=== PATIENT | female | born 1980 | race Caucasian/White ===

== ENCOUNTER 2018-04-11 10:29 | Emergency (ER) | payer OTHER ==
[2018-04-11 11:30] VITALS: BMI 27.6
[2018-04-11 12:27] LABS: BASO # 0.1 K/uL (0.0-0.2); BASO % 0.5 % (0.0-2.0); EOS % 0.3 % (0.0-4.0); HEMOGLOBIN 13.5 g/dL (12.0-16.0); LYMPH # 2.9 K/uL (1.0-4.3); LYMPH % 25.6 % (20.0-40.0); MEAN CELL VOLUME 93.3 fl (81.0-99.0); MEAN CORPUSCULAR HEMOGLOBIN 31.5 pg (27.0-31.0); MEAN CORPUSCULAR HGB CONC 33.8 g/dL (33.0-37.0); MEAN PLATELET VOLUME 12.5 fl (7.2-11.7); MONO # 0.6 K/uL (0.0-0.8); NEUT # 7.7 K/uL (1.8-7.0); NEUT % 68.6 % (50.0-75.0); NRBC % 0.2 % (0.0-0.0); RBC 4.27 Mil/uL (3.80-5.20); RED CELL DISTRIBUTION WIDTH 12.8 % (11.5-14.5); WHITE BLOOD COUNT 11.2 K/uL (4.8-10.8)
[2018-04-11 12:39] LABS: ALB/GLOB RATIO 1.1 (1.0-2.1); ALBUMIN 3.7 g/dL (3.5-5.0); ALT/SGPT 16 U/L (9-52); AST/SGOT 28 U/L (14-36); BLOOD UREA NITROGEN 10 mg/dl (7-17); CALCIUM 9.3 mg/dL (8.4-10.2); GFR AFRICAN-AMERICAN > 60; GFR NON-AFRICAN AMERICAN > 60; URIC ACID 5.4 mg/Dl (2.2-7.5)
[2018-04-11 12:44] LABS: SQUAMOUS EPITHIAL 24 /hpf (0-5); URINE BACTERIA RARE (<OCC); URINE BILIRUBIN NEGATIVE (NEGATIVE); URINE BLOOD NEGATIVE (NEGATIVE); URINE CLARITY CLOUDY (Clear); URINE COLOR YELLOW (YELLOW); URINE GLUCOSE (UA) NEG (Normal); URINE LEUKOCYTE ESTERASE MOD Leu/uL (Negative); URINE PROTEIN NEGATIVE (NEGATIVE); URINE UROBILINOGEN 0.2-1.0 mg/dL (0.2-1.0)
--- NOTE | 2018-04-11 14:21 | OBDCSUM ---
Datetime: 04/11/2018 14:09 Discharged to, Provider: Home Follow up at, Provider: Amanda Disch Instr Activity: Normal activity Disch Instr Diet: Regular Discharge Instructions, Provider: Routine instructions given Follow up in weeks, Provider: 2-3d BP check Disch Referrals: None Contraception discussed, Prov: Yes Discharge Comment, Provider: Pre-eclampsia warning Discharge Diagnosis Prov Other: Hx gestational HTN/Low PLT ... today NO evidence of pre-eclampsia...
--- NOTE | 2018-04-11 14:21 | OBHP ---
Datetime: 04/11/2018 11:20 IP Adm Impression: Term, intrauterine ; No Active Labor; Intact Membranes IP Chief Complaint Other: BP and lab work IP Admit Plan: Observation/Evaluation Admit Comment, IP Provider: 37yo IUP at 37w sent from office for BP check/lab work. She has no PEREIRA, no visual dist, no epigastric pain. no swelling of feet PNC: Dr CHASE - chart rev'd - IVF; AMA PMH: denies PSH: denies NKA POBGYNH: G1 Denies STD A: IUP at 37w Low PLT;Hx Elevated BP No Evid of pre-eclampsia PLAN: labs; NST and monitor BP; pre-eclampsia warning Abdomen - PN: Normal Back - PN: Normal Lungs - PN: Normal Heart - PN: Normal Neurologic - PN: Normal HEENT - PN: Normal General - PN: Normal Presentation-Admit: Vertex FHR - Baseline A Provider: 130 Pool Provider: Negative IP Hx Assessment: The History has been Reviewed and is Current IP Chief Complaint: Other NICHD Variability Prov Fetus A: Moderate 6-25bpm NICHD Accel Fetus A IP Provider: 15X15 FHR Category Provider Fetus A: Category I NICHD Decel Fetus A IP Provider: None
[2018-04-11 20:52] VITALS: BP 126/85; PULSE 84; RESP 18; TEMP 98.3; O2SAT 100
== END 2018-04-11 14:30 | disposition home or self-care (01) ==
LOC: H.EROB2 10:29 → H.EROB 11:00 → H.EROB2 14:30
DX: O26.93 Pregnancy related conditions, unspecified, third trimester (principal); I10 Essential (primary) hypertension; Z3A.37 37 weeks gestation of pregnancy

== ENCOUNTER 2018-04-17 11:23 | Inpatient (IN) | payer OTHER ==
[2018-04-17 12:48] LABS: BASO % 0.4 % (0.0-2.0); EOS % 0.2 % (0.0-4.0); HEMOGLOBIN 12.9 g/dL (12.0-16.0); LYMPH % 18.2 % (20.0-40.0); MEAN CELL VOLUME 94.2 fl (81.0-99.0); MEAN CORPUSCULAR HEMOGLOBIN 31.5 pg (27.0-31.0); MEAN CORPUSCULAR HGB CONC 33.4 g/dL (33.0-37.0); MEAN PLATELET VOLUME 11.8 fl (7.2-11.7); MONO # 0.5 K/uL (0.0-0.8); MONO % 4.3 % (0.0-10.0); NEUT # 8.6 K/uL (1.8-7.0); NEUT % 76.9 % (50.0-75.0); RBC 4.1 Mil/uL (3.80-5.20); WHITE BLOOD COUNT 11.2 K/uL (4.8-10.8)
[2018-04-17 12:51] LABS: SQUAMOUS EPITHIAL 1 /hpf (0-5); URINE BACTERIA RARE (<OCC); URINE BILIRUBIN NEGATIVE (NEGATIVE); URINE BLOOD LARGE (NEGATIVE); URINE CLARITY SLIGHTY-CLOUDY (Clear); URINE COLOR YELLOW (YELLOW); URINE GLUCOSE (UA) NEG (Normal); URINE LEUKOCYTE ESTERASE NEG Leu/uL (Negative); URINE PROTEIN NEGATIVE (NEGATIVE); URINE UROBILINOGEN 0.2-1.0 mg/dL (0.2-1.0)
[2018-04-17 13:04] LABS: BLOOD UREA NITROGEN 11 mg/dl (7-17); GFR AFRICAN-AMERICAN > 60; GFR NON-AFRICAN AMERICAN > 60
[2018-04-17 13:05] LABS: ALB/GLOB RATIO 1.1 (1.0-2.1); ALBUMIN 3.7 g/dL (3.5-5.0); ALT/SGPT 10 U/L (9-52); AST/SGOT 21 U/L (14-36); CALCIUM 9.2 mg/dL (8.4-10.2)
[2018-04-17] MEDS: Lactated Ringer's 1,000 ML IV SCH ×2 (15:50→19:00)
--- NOTE | 2018-04-17 20:13 | OBHP ---
Datetime: 04/17/2018 14:53 IP Adm Impression: Term, intrauterine IP Admit Plan: Admit to unit Admit Comment, IP Provider: 37 yo G1PO IUP at 39.5 wks based off of ultrasound with hx of gestationa l HTN is being admitted for induction of labor. She was seen here for monitoring of HTN 1 wk ago. Pat ient denies any vaginal bleeding, contractions or loss of fluid. +FM OBGYNhx: no miscarriages PMH: neg Famhx: neg Sochx: no Tobacco, EtOH or drugs Surghx: neg Allergies: neg Meds: vitamins ROS: neg for blurred vision, headache, cp or sob PE: well appearing female in no acute distress Cardio: s1s2 no murmurs Resp: clear to auscultation b/l Abd: BS+, nontender Ext: calves nontender A/P:37 yo G1PO IUP at 39.5 wks 1. Admit to unit; follow induction protocol; will continue to observe Patient seen and examined with Dr. Jose Juan Preciado PGY-1 Pelvic Type - PN: Adequate Extremities - PN: Normal Abdomen - PN: Normal Lungs - PN: Normal Heart - PN: Normal Neurologic - PN: Normal HEENT - PN: Normal General - PN: Normal Presentation-Admit: Vertex FHR - Baseline A Provider: 130 Membranes, Provider: Intact IP Hx Assessment: The History has been Reviewed and is Current EGA AdmitDate IP: 39.5 Vital Signs Provider: Reviewed; Within Normal Limits IP Indication for Induction: Gest. HTN/PreEclampsia/Eclampsia IP Chief Complaint: Scheduled induction of labor NICHD Variability Prov Fetus A: Moderate 6-25bpm NICHD Accel Fetus A IP Provider: 15X15 FHR Category Provider Fetus A: Category I NICHD Decel Fetus A IP Provider: None Dilatation, Provider: 3 Effacement, Provider: 70 Station, Provider: -2 Genitourinary Exam: Normal Dr Signature: zoltan
[2018-04-17] MEDS ORDERED: Nalbuphine HCL 10 mg/ml Ampule IVP PRN (22:11)
[2018-04-18] MEDS: Lactated Ringer's 1,000 ML IV SCH ×3 (03:04→13:05)
[2018-04-18 06:38] LABS: BASO # 0.1 K/uL (0.0-0.2); BASO % 0.5 % (0.0-2.0); EOS % 0.2 % (0.0-4.0); HEMOGLOBIN 13.5 g/dL (12.0-16.0); LYMPH # 2.7 K/uL (1.0-4.3); LYMPH % 20.8 % (20.0-40.0); MEAN CELL VOLUME 93.5 fl (81.0-99.0); MEAN CORPUSCULAR HEMOGLOBIN 31.7 pg (27.0-31.0); MEAN CORPUSCULAR HGB CONC 33.9 g/dL (33.0-37.0); MEAN PLATELET VOLUME 11.9 fl (7.2-11.7); MONO # 0.7 K/uL (0.0-0.8); MONO % 5.3 % (0.0-10.0); NEUT # 9.5 K/uL (1.8-7.0); NEUT % 73.2 % (50.0-75.0); NRBC % 0.1 % (0.0-0.0); RBC 4.24 Mil/uL (3.80-5.20); RED CELL DISTRIBUTION WIDTH 13.2 % (11.5-14.5)
[2018-04-18] MEDS ORDERED: Lactated Ringer's 1,000 ML IV SCH (06:45)
[2018-04-18] MEDS ORDERED: Fentanyl/Bupivacaine HCl 250 ML EPI ONE (07:43)
--- NOTE | 2018-04-18 08:33 | OBADHP ---
Datetime: 04/17/2018 14:53 Admit Comment, IP Provider: 37 yo G1PO IUP at 39.5 wks based off of ultrasound with hx of gestationa l HTN is being admitted for induction of labor. She was seen here for monitoring of HTN 1 wk ago. Pat ient denies any vaginal bleeding, contractions or loss of fluid. +FM OBGYNhx: no miscarriages PMH: neg Famhx: neg Sochx: no Tobacco, EtOH or drugs Surghx: neg Allergies: neg Meds: vitamins ROS: neg for blurred vision, headache, cp or sob PE: well appearing female in no acute distress Cardio: s1s2 no murmurs Resp: clear to auscultation b/l Abd: BS+, nontender Ext: calves nontender A/P:37 yo G1PO IUP at 39.5 wks 1. Admit to unit; follow induction protocol; will continue to observe Patient seen and examined with Dr. Jose Juan Turner PGY-1 ob attending addendum: pt seen _ examined by me ww/ dr turner. agree w/ above assessment and plan w/ following additions she denies n/v, midepigastric pain.. o:bps 110-130s/60-70 5/18 platelt 118 I: Gest HTN- r/o Preeclamp Decreased Platele- P: cmp, cbc, ua addendum #2 attending(late entry) o:04/17 platelet 85 cmp nl, ua nl w/ neg protein i: gest HTN idiopath thrombocytopenia p: induction begin pitocin Pelvic Type - PN: Adequate Extremities - PN: Normal Abdomen - PN: Normal Lungs - PN: Normal Heart - PN: Normal Neurologic - PN: Normal HEENT - PN: Normal General - PN: Normal Presentation-Admit: Vertex FHR - Baseline A Provider: 130 Membranes, Provider: Intact IP Hx Assessment: The History has been Reviewed and is Current Vital Signs Provider: Reviewed; Within Normal Limits IP Chief Complaint: Scheduled induction of labor NICHD Variability Prov Fetus A: Moderate 6-25bpm NICHD Accel Fetus A IP Provider: 15X15 FHR Category Provider Fetus A: Category I NICHD Decel Fetus A IP Provider: None Dilatation, Provider: 3 Effacement, Provider: 70 Station, Provider: -2 Genitourinary Exam: Normal EGA AdmitDate IP: 39.5 IP Adm Impression: Term, intrauterine IP Admit Plan: Admit to unit Datetime: 04/11/2018 11:20 IP Chief Complaint Other: BP and lab work Back - PN: Normal Pool Provider: Negative
--- NOTE | 2018-04-18 08:41 | OBPN ---
Datetime: 04/18/2018 08:38 FHR - Baseline A Provider: 120 IP Progress Note Comment: s: no c/o pain rated 2-3/10 o: 4cm/70/posterior i: 39.6wks h/o ivf gest htn- bps 110-130/60-70 idiopathic thrombocytopenia p: d/w pt arom and continue augment with pit.pt advisesed that pain will increase in severity- she requested epidural. will admiinster prior to arom pt d/w anesth rpeat plate 86, stable. anesht request consult priot to adm of epid. pt d/w dr sigala ipe he advised epidural and stated dr marcus should call w/ any quest/concerns. dr marcus advised- pt for e pidural NICHD Accel Fetus A IP Provider: 15X15 FHR Category Provider Fetus A: Category I NICHD Variability Prov Fetus A: Moderate 6-25bpm NICHD Decel Fetus A IP Provider: None Datetime: 04/17/2018 14:53 Membranes, Provider: Intact Presentation-Admit: Vertex Vital Signs Provider: Reviewed; Within Normal Limits Dilatation, Provider: 3 Effacement, Provider: 70 Station, Provider: -2 Datetime: 04/11/2018 11:20 Pool Provider: Negative
--- NOTE | 2018-04-18 08:43 | OBPN ---
Datetime: 04/17/2018 14:53 IP Progress Note Comment: ob attending addendum: pt seen _ examined by me ww/ dr turner. agree w/ above assessment and plan w/ following additions she denies n/v, midepigastric pain.. o:bps 110-130s/60-70 02/03 platelt 118 I: Gest HTN- r/o Preeclamp Decreased Platele- P: cmp, cbc, ua (late entry) o:04/17 platelet 85 cmp nl, ua nl w/ neg protein i: gest HTN idiopath thrombocytopenia p: induction begin pitocin
--- NOTE | 2018-04-18 10:05 | OBPN ---
Datetime: 04/18/2018 09:46 IP Progress Impression: Normal progression of labor IP Procedures: Artificial ROM IP Progress Plan: Augmentation Membranes, Provider: Ruptured Amniotic Fluid Color, Provider: Clear Contraction Comments Provider: Q2 FHR - Baseline A Provider: 130 IP Progress Note Comment: 37 yo G1 at 39+6 wks w/ low platelets, on pitocin, s/p AROM for clear flui d w/ small blood clots GBS negative Continue current mangement Vital Signs Provider: Reviewed NICHD Accel Fetus A IP Provider: 15X15 FHR Category Provider Fetus A: Category II NICHD Variability Prov Fetus A: Moderate 6-25bpm Dilatation, Provider: 6-7 Effacement, Provider: 75 Station, Provider: -3 NICHD Decel Fetus A IP Provider: None
--- NOTE | 2018-04-18 10:08 | CARD ---
APPROVED REPORT Date of service: 04/18/2018 EKG Measurement Heart [id number] ID [id number] <Conclusion> Normal sinus rhythm Biatrial enlargement Possible Lateral infarct, age undetermined Abnormal ECG
[2018-04-18] MEDS ORDERED: OXYTOCIN/0.9 % NS 20 UNIT/1,000 ML BAG IV SCH (10:15)
--- NOTE | 2018-04-18 14:15 | OBPN ---
Datetime: 04/18/2018 14:08 IP Progress Impression: Normal progression of labor IP Procedures: Sterile Vag Exam IP Progress Plan: Continue present management Membranes, Provider: Ruptured Amniotic Fluid Color, Provider: Clear Contraction Comments Provider: Q2-3 FHR - Baseline A Provider: 130's IP Progress Note Comment: 37 yo G1 at 39+6 wks for induction of labor for low platelets, on pitocin FHT reassuring, GBS negative Anticipate VD NICHD Accel Fetus A IP Provider: 15X15 FHR Category Provider Fetus A: Category I NICHD Variability Prov Fetus A: Moderate 6-25bpm Dilatation, Provider: 10 Effacement, Provider: 100 Station, Provider: -1-0 NICHD Decel Fetus A IP Provider: None
[2018-04-18] MEDS ORDERED: Oxytocin 30 units/LR 500ML 30 U/500 ML BAG IV ONE (15:47)
[2018-04-18] MEDS ORDERED: Benzocaine/Menthol SPRAY TOP PRN ×2 (17:26→20:19)
[2018-04-18] MEDS ORDERED: Oxycodone/Acetaminophen 5/325 mg Tab PO PRN ×2 (17:26→20:19)
--- NOTE | 2018-04-18 17:54 | OBDS ---
DELIVERY PERSONNEL Delivery Doctor: Nathaniel Menezes MD Human Resource Manager: Carol Jin RN Anesthesiologist: Ren Armstrong MD Resident: Dr. Preciado MATERNAL INFORMATION Delivery Anesthesia: Epidural Medications in Delivery: pitocin 30 units Estimated Blood Loss (ml): 250 Placenta Cultured: No Maternal Complications: Other Provider Comments: Pt prgressed to complete and pushed to deliver a viable male infant through clear fluid at 1545. Apgars 9 and 9. Wt 3325 gms, 7#5.3. placed on mother's abdomen. Cord blood collected. Placenta delivered spontaneously intact w/ 3vc at 1547. Fourth degree tear repaired. V aginal packing placed. Jackson placed. Pt and baby tolerated the procedure well. EBL 250 mL LABOR SUMMARY EDC: 04/19/2018 00:00 No. Babies in Womb: 1 Attempted: No Labor Anesthesia: Epidural LABOR INFORMATION Reason for Induction: Not Applicable Complete Dilatation: 04/18/2018 14:01 Oxytocin: Augmentation Group B Beta Strep: Negative Steroids Given: None Reason Steroids Not Administered: Not Applicable MEMBRANES Membranes Rupture Method: Artificial Rupture of Membranes: 04/18/2018 09:45 Length of Rupture (hrs): 6.00 Amniotic Fluid Color: Clear Amniotic Fluid Amount: Small Amniotic Fluid Odor: Normal STAGES OF LABOR Stage 2 hrs: 1 Stage 2 min: 44 Stage 3 hrs: 0 Stage 3 min: 2 VAGINAL DELIVERY Episiotomy: None Laceration Extension: Fourth Degree Laceration Type: Vaginal Laceration Repair Note: Fourth degree tear repaired. Anal mucosa approximated w/ 4-0v with imbrica ting interrrupted stitches and then w/ running imbricated running stitch of 4-0v. Sphincter muscle r eapproximated w/ interrupted stitches of 0-v. Vagina repaired w/ running stitches of 2-0 rapide. Va enrrique packed w/ vaginal packing soaked w/ cold saline. Perieum reapproximated w/ interrupted stitche s of 2-0 rapide and skin reapproximated w/ interrupted stitches of 3-0v. Rectum intact. Jackson plac ed in bladder. Initial Vag Sponge Count: 10 Final Vag Sponge Count: 10 Initial Vag Sharps Count: 13 Final Vag Sharps Count: 13 Sponge Count Correct: Yes Sharps Count Correct: Yes Count Comment: 20 laps 10 4x4 13 sutures all accounted for BABY A INFORMATION Infant Delivery Date/Time: 04/18/2018 15:45 Method of Delivery: Vaginal Born in Route : No : N/A Forceps: N/A Vacuum Extraction: N/A Shoulder Dystocia : No SHOULDER DYSTOCIA BABY A Delivery Date/Time: 04/18/2018 15:45 PRESENTATION/POSITION BABY A Presentation: Cephalic Cephalic Presentation: Vertex Breech Presentation: N/A PLACENTA INFORMATION BABY A Placenta Delivery Time : 04/18/2018 15:47 Placenta Method of Delivery: Spontaneous Placenta Status: Delivered SCORES BABY A Heart Rate 1 min: >100 bpm Resp Effort 1 min: Good Cry Reflex Irritability 1 min: Cough or Sneeze or Pulls Away Muscle Tone 1 min: Active Motion Color 1 min: Body [place], Extremities Blue Resuscitation Effort 1 min: Tactile Stimulation SCORE 1 MIN: 9 Heart Rate 5 min: >100 bpm Resp Effort 5 min: Good Cry Reflex Irritability 5 min: Cough or Sneeze or Pulls Away Muscle Tone 5 min: Active Motion Color 5 min: Body [place], Extremities Blue SCORE 5 MIN: 9 Heart Rate 10 min: >100 bpm Resp Effort 10 min: Good Cry Reflex Irritability 10 min: Cough or Sneeze or Pulls Away Muscle Tone 10 min: Active Motion Color 10 min: Completely [place] SCORE 10 MIN: 10 INFANT INFORMATION BABY A Gestational Age at Delivery: 39.0 Gestational Status: Term Outcome : Liveborn Condition : Stable Sex: Male IDENTIFICATION/MEDS BABY A ID Band Number: [id number] ID Band Location: Left Leg; Left Arm WEIGHT/LENGTH BABY A Birthweight (gms): 3325 Infant Weight (lb): 7 Weight (oz): 5 CORD INFORMATION BABY A No. Cord Vessels: 3 Nuchal Cord : Around Neck x1, Loose Infant Suction: None ASSESSMENT BABY A Complications: None Physical Findings at Delivery: Within Normal Limits Infant Respirations: Appears Normal [employer] Sho[employer] Man/ALS Called : No Care By: Mary Murray / Olivia Michaud Transferred To: Remains with Mother
[2018-04-19 06:49] LABS: BASO % 0.1 % (0.0-2.0); EOS # 0.1 K/uL (0.0-0.7); EOS % 0.4 % (0.0-4.0); HEMOGLOBIN 10.5 g/dL (12.0-16.0); LYMPH # 2.2 K/uL (1.0-4.3); LYMPH % 17.6 % (20.0-40.0); MEAN CORPUSCULAR HEMOGLOBIN 31.8 pg (27.0-31.0); MEAN CORPUSCULAR HGB CONC 33.4 g/dL (33.0-37.0); MONO # 0.7 K/uL (0.0-0.8); MONO % 5.8 % (0.0-10.0); NEUT # 9.6 K/uL (1.8-7.0); NEUT % 76.1 % (50.0-75.0); RBC 3.3 Mil/uL (3.80-5.20); RED CELL DISTRIBUTION WIDTH 13.1 % (11.5-14.5); WHITE BLOOD COUNT 12.7 K/uL (4.8-10.8)
--- NOTE | 2018-04-19 08:24 | OBPPN ---
Datetime: 04/19/2018 08:21 PP Pain Prov: Within normal limits PP Abdomen/Uterus Prov: Normal PP Lochia Prov: Normal PP Vulva/Perineum Prov: Normal PP Extremities Prov: Normal PP Progress Prov: Normal PP Impression Prov: Normal progression PP Progress Note Prov: PPD 1 s/p w/ 4th degree tear and vaginal packing placed, doing well, tryi ng to breast feed Vaginal packing removed and francis to be removed this am Continue current care Vital Signs Provider PP: Reviewed
--- NOTE | 2018-04-20 11:38 | OBPPN ---
Datetime: 04/20/2018 11:32 PP Pain Prov: Within normal limits PP Nausea Prov: Denies PP Flatus Prov: Yes PP BM Prov: Yes PP Breasts Prov: Normal PP Heart Prov: Normal PP Lungs Prov: Normal PP Abdomen/Uterus Prov: Normal PP Lochia Prov: Normal PP Vulva/Perineum Prov: Normal PP CVA Tenderness Prov: Normal PP Extremities Prov: Normal PP Comments Phys Exam Prov: Abdomen soft, nontender, nondistended Uterus firm, below umbilicus Deep Tenderness bilaterally PP Impression Prov: Normal progression PP Plan Prov: Discharge PP Progress Note Prov: day #2 status post , patient recovering well Discharge patient home with instructions Follow up in office in 6 weeks for follow-up IP PP Procedures: None Vital Signs Provider PP: Reviewed; Within Normal Limits
--- NOTE | 2018-04-20 11:38 | OBDCSUM ---
Datetime: 04/20/2018 11:36 Discharged to, Provider: Home Follow up at, Provider: Dr. Marrero Disch Instr Activity: Normal activity Disch Instr Diet: Regular Discharge Instructions, Provider: Routine instructions given Discharge Diagnosis, Provider: Term Delivered Discharge Time: 04/20/2018 11:36 Follow up in weeks, Provider: 6 weeks Disch Referrals: None Contraception discussed, Prov: Yes Disch Activity Restrictions: No exercising; No lifting; No sexual activity; Nothing in vagina - Inte rcourse, tampons, douche Contraception after Delivery: Not Planning to Use
[2018-04-20 22:57] VITALS: BP 106/72; PULSE 80; RESP 20; TEMP 98.6; O2SAT 99
== END 2018-04-20 13:55 | disposition home or self-care (01) | DRG 775 ==
LOC: H.EROB2 11:23 → H.L&D 12:12 → H.OB/GYN 04-18 20:00
PROVIDERS: ADMIT Obstetrics & Gynecology; ATTEND Obstetrics & Gynecology
PROC: 4A1HXCZ Monitoring of Products of Conception, Cardiac Rate, External Approach (ICD-10-PCS; 2018-04-17)
PROC: 10E0XZZ Delivery of Products of Conception, External Approach (ICD-10-PCS; principal; 2018-04-18)
PROC: 0DQP0ZZ Repair Rectum, Open Approach (ICD-10-PCS; 2018-04-18)
DX: O13.4 Gestational [pregnancy-induced] hypertension without significant proteinuria, complicating childbirth (principal); O99.12 Other diseases of the blood and blood-forming organs and certain disorders involving the immune mechanism complicating childbirth; Z37.0 Single live birth; Z3A.39 39 weeks gestation of pregnancy; O69.81X0 Labor and delivery complicated by cord around neck, without compression, not applicable or unspecified; O70.3 Fourth degree perineal laceration during delivery; D69.6 Thrombocytopenia, unspecified